=== PATIENT | female | born 1975 | race Caucasian/White ===

== ENCOUNTER 2020-11-16 05:55 | Inpatient (IN) | payer MEDICARE, MEDICAID ==
[~2020-11-16] VITALS: Ht 175.3 cm; Wt 99.3 kg
[2020-11-16] MEDS ORDERED: PROMETHAZINE HCL 25 MG TABLET PO PRN (09:00)
[2020-11-16] MEDS ORDERED: LOPERAMIDE HCL 2 MG CAPSULE PO PRN (09:00)
[2020-11-16] MEDS ORDERED: TUBERCULIN, PURIFIED PROTEIN DERIVATIVE 5 TU/0.1 ML SYRINGE ID ONE (09:00)
[2020-11-16] MEDS ORDERED: GuaiFENesin/D-METHORPHAN [SUGAR-FREE] 200-20MG/10 ML SYRUP UDCUP PO PRN (09:00)
[2020-11-16] MEDS ORDERED: HydrOXYzine PAMOATE 50 MG CAPSULE PO PRN (09:00)
[2020-11-16] MEDS ORDERED: ACETAMINOPHEN 325 MG TABLET PO PRN (09:00)
[2020-11-16] MEDS ORDERED: MAG HYDROX/AL HYDROX/SIMETH ES 30 ML SUSPENSION UDCUP PO PRN (09:00)
[2020-11-16] MEDS: FLUoxetine HCL 20 MG CAPSULE PO SCH (13:20)
[2020-11-16] MEDS: FOLIC ACID 1 MG TABLET PO SCH (13:27)
[2020-11-16] MEDS: MULTIVITAMINS WITH MINERALS, THERAPEUTIC TABLET PO SCH (13:27)
[2020-11-16] MEDS: OMEGA-3/DHA/EPA/FISH OIL 1,000 MG CAPSULE PO SCH (13:28)
[2020-11-16] MEDS: THIAMINE 100 MG TABLET PO SCH ×2 (13:28→16:49)
[2020-11-16] MEDS: NALTREXONE HCL 50 MG TABLET PO SCH (13:28)
[2020-11-16] MEDS: LORazepam 2 MG TABLET PO PRN (13:28)
[2020-11-16] MEDS: OLANZapine 5 MG RAPDIS TABLET PO PRN (13:29)
[2020-11-16] MEDS: NICOTINE 21 MG/24 HOUR PATCH TD SCH (13:30)
[2020-11-16 16:19] VITALS: BP 100/62
[2020-11-16] MEDS: MELATONIN 5 MG TABLET PO SCH (20:12)
[2020-11-16] MEDS: OLANZapine 5 MG RAPDIS TABLET PO SCH (20:13)
[2020-11-17 00:24] VITALS: BP 119/62
[2020-11-17] MEDS: ACETAMINOPHEN 325 MG TABLET PO PRN ×2 (07:07→14:46)
[2020-11-17 07:36] LABS: BASOPHILS % (AUTO) 0.7 % (0.0-2.0); EOSINOPHILS % (AUTO) 11.8 % (1.0-6.0); HEMATOCRIT 35.5 % (36-46); HEMOGLOBIN 11.5 g/dL (12.0-16.0); LYMPHOCYTES # (AUTO) 1.8 K/uL (1.0-4.8); LYMPHOCYTES % (AUTO) 28.7 % (22.0-44.0); MEAN CORPUSCULAR HEMOGLOBIN 29.8 pg (26.0-34.0); MEAN CORPUSCULAR HGB CONC 32.4 G/dL (31.0-37.0); MEAN CORPUSCULAR VOLUME 92 fL (80-100); MONOCYTES # (AUTO) 0.3 K/uL (0.1-1.0); MONOCYTES % (AUTO) 5.4 % (2.0-9.0); NEUTROPHILS # (AUTO) 3.3 K/uL (1.8-7.7); NEUTROPHILS % (AUTO) 53.4 % (40.0-70.0); PLATELET COUNT (AUTO) 260 K/uL (150-450); RED BLOOD CELL COUNT(AUTO) 3.86 MIL/uL (4.00-5.20); RED CELL DISTRIBUTION WIDTH 13.6 % (11.5-14.5)
[2020-11-17 08:06] VITALS: BP 139/80
[2020-11-17] MEDS: NICOTINE 21 MG/24 HOUR PATCH TD SCH (08:07)
[2020-11-17] MEDS: OMEGA-3/DHA/EPA/FISH OIL 1,000 MG CAPSULE PO SCH (08:07)
[2020-11-17] MEDS: FOLIC ACID 1 MG TABLET PO SCH (08:07)
[2020-11-17] MEDS: THIAMINE 100 MG TABLET PO SCH ×2 (08:07→17:17)
[2020-11-17] MEDS: NALTREXONE HCL 50 MG TABLET PO SCH (08:07)
[2020-11-17] MEDS: MULTIVITAMINS WITH MINERALS, THERAPEUTIC TABLET PO SCH (08:07)
[2020-11-17] MEDS: FLUoxetine HCL 20 MG CAPSULE PO SCH ×3 (08:07→09:00)
[2020-11-17 08:10] LABS: HEMOGLOBIN A1C 5.6 % (3.8-5.6)
[2020-11-17 08:13] LABS: ALANINE AMINOTRANSFERASE 26 U/L (12-78); ALKALINE PHOSPHATASE 65 U/L (46-116); ANION GAP 7 mmol/L (8-16); ASPARTATE AMINOTRANSFERASE 16 U/L (15-37); BILIRUBIN,TOTAL 0.1 mg/dL (0.1-1.0); CALCIUM, TOTAL 8.9 mg/dL (8.8-10.5); CARBON DIOXIDE 28 mmol/L (22-29); CHLORIDE 109 mmol/L (98-107); CHOL/HDL RATIO 5.8 (3.9-5.7); CHOLESTEROL 202 mg/dL (131-200); CREATININE 0.57 mg/dL (0.60-1.30); FREE T4 (FREE THYROXINE) 0.94 ng/dL (0.76-1.46); GLOMERULAR FILTR. RATE CALC > 60 mL/min (>60); GLUCOSE,RANDOM 81 mg/dL (70-110); HCG,QUANTITATIVE 1 mIU/mL (0-6); HDL CHOLESTEROL 35 mg/dL (40-60); LDL CHOL (CALC.) 122 mg/dL (0-130); POTASSIUM 3.9 mmol/L (3.5-5.1); SODIUM SERUM 144 mmol/L (136-145); TOTAL PROTEIN, SERUM 6.5 g/dL (6.4-8.2); TRIGLYCERIDES 225 mg/dL (15-150); UREA NITROGEN, BLOOD 11 mg/dL (7-18)
[2020-11-17] MEDS: ATORVASTATIN CALCIUM 10 MG TABLET PO SCH (09:21)
[2020-11-17] MEDS: IBUPROFEN 600 MG TABLET PO PRN (09:43)
[2020-11-17] MEDS: LORazepam 2 MG TABLET PO PRN (12:05)
[2020-11-17 16:17] VITALS: BP 121/72
[2020-11-17] MEDS: OLANZapine 5 MG RAPDIS TABLET PO SCH (20:49)
[2020-11-17] MEDS: MELATONIN 5 MG TABLET PO SCH (20:49)
[2020-11-18 00:15] VITALS: BP 130/85
[2020-11-18 08:10] VITALS: BP 140/90
[2020-11-18] MEDS: NICOTINE 21 MG/24 HOUR PATCH TD SCH (08:15)
[2020-11-18] MEDS: THIAMINE 100 MG TABLET PO SCH ×2 (08:15→16:18)
[2020-11-18] MEDS: FOLIC ACID 1 MG TABLET PO SCH (08:15)
[2020-11-18] MEDS: MULTIVITAMINS WITH MINERALS, THERAPEUTIC TABLET PO SCH (08:15)
[2020-11-18] MEDS: OMEGA-3/DHA/EPA/FISH OIL 1,000 MG CAPSULE PO SCH (08:15)
[2020-11-18] MEDS: ATORVASTATIN CALCIUM 10 MG TABLET PO SCH (08:15)
[2020-11-18] MEDS: NALTREXONE HCL 50 MG TABLET PO SCH (08:15)
[2020-11-18] MEDS: FLUoxetine HCL 20 MG CAPSULE PO SCH (08:24)
[2020-11-18] MEDS: IBUPROFEN 600 MG TABLET PO PRN (08:28)
[2020-11-18] MEDS: LORazepam 2 MG TABLET PO PRN (08:39)
[2020-11-18 16:14] VITALS: BP 125/90
[2020-11-18] MEDS: MELATONIN 5 MG TABLET PO SCH (20:34)
[2020-11-18] MEDS: OLANZapine 10 MG RAPDIS TABLET PO SCH (20:34)
[2020-11-19 00:26] VITALS: BP 130/71
[2020-11-19] MEDS: IBUPROFEN 600 MG TABLET PO PRN (01:52)
[2020-11-19] MEDS: LORazepam 2 MG TABLET PO PRN ×2 (01:52→09:53)
[2020-11-19 08:10] VITALS: BP 118/71
[2020-11-19] MEDS: FOLIC ACID 1 MG TABLET PO SCH (08:26)
[2020-11-19] MEDS: BuPROPion HCL XL 150 MG ER TABLET PO SCH (08:26)
[2020-11-19] MEDS: MULTIVITAMINS WITH MINERALS, THERAPEUTIC TABLET PO SCH (08:26)
[2020-11-19] MEDS: THIAMINE 100 MG TABLET PO SCH ×2 (08:26→16:28)
[2020-11-19] MEDS: OMEGA-3/DHA/EPA/FISH OIL 1,000 MG CAPSULE PO SCH (08:26)
[2020-11-19] MEDS: ATORVASTATIN CALCIUM 10 MG TABLET PO SCH (08:27)
[2020-11-19] MEDS: NALTREXONE HCL 50 MG TABLET PO SCH (08:27)
[2020-11-19] MEDS: NICOTINE 21 MG/24 HOUR PATCH TD SCH (08:36)
[2020-11-19] MEDS: ACETAMINOPHEN 325 MG TABLET PO PRN (10:32)
[2020-11-19] MEDS: OLANZapine 5 MG RAPDIS TABLET PO PRN (11:10)
[2020-11-19 16:05] VITALS: BP 128/79
[2020-11-19] MEDS: MELATONIN 5 MG TABLET PO SCH (20:45)
[2020-11-19] MEDS: OLANZapine 10 MG RAPDIS TABLET PO SCH (20:45)
[2020-11-20] MEDS: IBUPROFEN 600 MG TABLET PO PRN ×2 (01:00→20:15)
[2020-11-20 01:01] VITALS: BP 125/79
[2020-11-20 08:09] VITALS: BP 105/74
[2020-11-20] MEDS: FOLIC ACID 1 MG TABLET PO SCH (08:21)
[2020-11-20] MEDS: OMEGA-3/DHA/EPA/FISH OIL 1,000 MG CAPSULE PO SCH (08:21)
[2020-11-20] MEDS: NALTREXONE HCL 50 MG TABLET PO SCH (08:22)
[2020-11-20] MEDS: MULTIVITAMINS WITH MINERALS, THERAPEUTIC TABLET PO SCH (08:22)
[2020-11-20] MEDS: BuPROPion HCL XL 150 MG ER TABLET PO SCH (08:22)
[2020-11-20] MEDS: NICOTINE 21 MG/24 HOUR PATCH TD SCH (08:22)
[2020-11-20] MEDS: ATORVASTATIN CALCIUM 10 MG TABLET PO SCH (08:22)
[2020-11-20] MEDS: THIAMINE 100 MG TABLET PO SCH ×2 (08:22→16:35)
[2020-11-20] MEDS: LORazepam 2 MG TABLET PO PRN ×2 (11:14→16:35)
[2020-11-20 16:09] VITALS: BP 110/73
[2020-11-20 20:15] VITALS: BP 116/68
[2020-11-20] MEDS: OLANZapine 10 MG RAPDIS TABLET PO SCH (20:28)
[2020-11-20] MEDS: MELATONIN 5 MG TABLET PO SCH (20:29)
[2020-11-21 00:42] VITALS: BP 117/83
[2020-11-21 02:09] VITALS: BP 119/72
[2020-11-21] MEDS: LORazepam 2 MG TABLET PO PRN ×3 (02:12→16:38)
[2020-11-21] MEDS: ACETAMINOPHEN 325 MG TABLET PO PRN (02:12)
[2020-11-21 07:12] LABS: COVID AG,FIA SOURCE NASOPHARYNGEAL
[2020-11-21 07:24] LABS: APPEARANCE,URINE CLEAR (CLEAR); BILIRUBIN,URINE NEGATIVE (NEGATIVE); GLUCOSE, URINE (UA) NEGATIVE (NEGATIVE); KETONES,URINE NEGATIVE (NEGATIVE); LEUKOCYTE ESTERASE ,URINE NEGATIVE (NEGATIVE); NITRATE,URINE NEGATIVE (NEGATIVE); OCCULT BLOOD,URINE NEGATIVE (NEGATIVE); PH,URINE 7.5 (5.0-8.0); PROTEIN,URINE NEGATIVE (NEGATIVE); UROBILINOGEN,URINE 0.2 mg/dL (<=1.0)
[2020-11-21 07:26] LABS: AMPHET/METH SCREEN,URINE NEGATIVE (NEGATIVE); BARBITURATE SCREEN, URINE NEGATIVE (NEGATIVE); BENZODIAZEPINES SCREEN,URINE NEGATIVE (NEGATIVE); CANNABINOID SCREEN,URINE NEGATIVE (NEGATIVE); COCAINE SCREEN,URINE NEGATIVE (NEGATIVE); METHADONE SCREEN, URINE NEGATIVE (NEGATIVE); OPIATE SCREEN,URINE NEGATIVE (NEGATIVE)
[2020-11-21 07:28] LABS: PHENCYCLIDINE SCREEN,URINE NEGATIVE (NEGATIVE)
[2020-11-21] MEDS: THIAMINE 100 MG TABLET PO SCH ×2 (08:23→16:28)
[2020-11-21] MEDS: ATORVASTATIN CALCIUM 10 MG TABLET PO SCH (08:23)
[2020-11-21] MEDS: MULTIVITAMINS WITH MINERALS, THERAPEUTIC TABLET PO SCH (08:23)
[2020-11-21] MEDS: OMEGA-3/DHA/EPA/FISH OIL 1,000 MG CAPSULE PO SCH (08:23)
[2020-11-21] MEDS: NALTREXONE HCL 50 MG TABLET PO SCH (08:23)
[2020-11-21] MEDS: BuPROPion HCL XL 150 MG ER TABLET PO SCH (08:23)
[2020-11-21] MEDS: FOLIC ACID 1 MG TABLET PO SCH (08:23)
[2020-11-21] MEDS: NICOTINE 21 MG/24 HOUR PATCH TD SCH (08:24)
[2020-11-21 09:58] VITALS: BP 136/91
[2020-11-21] MEDS: IBUPROFEN 600 MG TABLET PO PRN (13:40)
[2020-11-21 16:10] VITALS: BP 120/87
[2020-11-21] MEDS ORDERED: HALOPERIDOL LACTATE 5 MG/ML VIAL ONE (18:00)
[2020-11-21] MEDS ORDERED: DiphenhydrAMINE HCL 50 MG/ML VIAL ONE (18:00)
[2020-11-21] MEDS ORDERED: LORazepam 2 MG/ML VIAL ONE (18:00)
[2020-11-21] MEDS ORDERED: LORazepam 2 MG/ML VIAL IM ONE (18:15)
[2020-11-21] MEDS ORDERED: HALOPERIDOL LACTATE 5 MG/ML VIAL IM ONE (18:15)
[2020-11-21] MEDS ORDERED: DiphenhydrAMINE HCL 50 MG/ML VIAL IM ONE (18:15)
[2020-11-21] MEDS: OLANZapine 10 MG RAPDIS TABLET PO SCH (20:20)
[2020-11-21] MEDS: MELATONIN 5 MG TABLET PO SCH (20:23)
[2020-11-22 00:36] VITALS: BP 129/84
[2020-11-22] MEDS: ZOLPIDEM TARTRATE 10 MG TABLET PO PRN (01:02)
[2020-11-22] MEDS: LORazepam 2 MG TABLET PO PRN ×2 (01:03→20:28)
[2020-11-22 02:52] VITALS: BP 132/72
[2020-11-22] MEDS: IBUPROFEN 600 MG TABLET PO PRN ×2 (02:55→10:18)
[2020-11-22 08:21] VITALS: BP 115/82
[2020-11-22] MEDS: OMEGA-3/DHA/EPA/FISH OIL 1,000 MG CAPSULE PO SCH (09:22)
[2020-11-22] MEDS: FOLIC ACID 1 MG TABLET PO SCH (09:22)
[2020-11-22] MEDS: NALTREXONE HCL 50 MG TABLET PO SCH (09:23)
[2020-11-22] MEDS: MULTIVITAMINS WITH MINERALS, THERAPEUTIC TABLET PO SCH (09:23)
[2020-11-22] MEDS: BuPROPion HCL XL 150 MG ER TABLET PO SCH (09:24)
[2020-11-22] MEDS: NICOTINE 21 MG/24 HOUR PATCH TD SCH (09:26)
[2020-11-22] MEDS: ATORVASTATIN CALCIUM 10 MG TABLET PO SCH (09:31)
[2020-11-22] MEDS: THIAMINE 100 MG TABLET PO SCH ×2 (09:40→16:20)
[2020-11-22 16:18] VITALS: BP 107/66
[2020-11-22] MEDS: BusPIRone HCL 10 MG TABLET PO SCH (16:20)
[2020-11-22] MEDS: GABAPENTIN 300 MG CAPSULE PO SCH (16:20)
[2020-11-22] MEDS ORDERED: LORazepam 2 MG/ML VIAL ONE (16:29)
[2020-11-22] MEDS ORDERED: HALOPERIDOL LACTATE 5 MG/ML VIAL ONE (16:29)
[2020-11-22] MEDS ORDERED: DiphenhydrAMINE HCL 50 MG/ML VIAL ONE (16:29)
[2020-11-22] MEDS ORDERED: HALOPERIDOL LACTATE 5 MG/ML VIAL IM ONE (16:30)
[2020-11-22] MEDS ORDERED: LORazepam 2 MG/ML VIAL IM ONE (16:30)
[2020-11-22] MEDS ORDERED: DiphenhydrAMINE HCL 50 MG/ML VIAL IM ONE (16:30)
[2020-11-22] MEDS: TraZODone HCL 100 MG TABLET PO SCH (20:28)
[2020-11-22] MEDS: OLANZapine 10 MG RAPDIS TABLET PO SCH (20:28)
[2020-11-22] MEDS: MELATONIN 5 MG TABLET PO SCH (21:33)
[2020-11-23 04:10] VITALS: BP 118/79
[2020-11-23] MEDS: IBUPROFEN 600 MG TABLET PO PRN ×2 (06:07→14:05)
[2020-11-23 08:17] VITALS: BP 128/78
[2020-11-23] MEDS: ACETAMINOPHEN 325 MG TABLET PO PRN ×2 (08:49→23:06)
[2020-11-23] MEDS: LORazepam 2 MG TABLET PO PRN ×2 (08:49→16:02)
[2020-11-23] MEDS: OMEGA-3/DHA/EPA/FISH OIL 1,000 MG CAPSULE PO SCH (08:49)
[2020-11-23] MEDS: NICOTINE 21 MG/24 HOUR PATCH TD SCH (08:50)
[2020-11-23] MEDS: ATORVASTATIN CALCIUM 10 MG TABLET PO SCH (08:50)
[2020-11-23] MEDS: FOLIC ACID 1 MG TABLET PO SCH (08:50)
[2020-11-23] MEDS: BuPROPion HCL XL 150 MG ER TABLET PO SCH (08:50)
[2020-11-23] MEDS: THIAMINE 100 MG TABLET PO SCH ×2 (08:50→16:02)
[2020-11-23] MEDS: GABAPENTIN 300 MG CAPSULE PO SCH ×3 (08:50→16:02)
[2020-11-23] MEDS: NALTREXONE HCL 50 MG TABLET PO SCH (08:50)
[2020-11-23] MEDS: MULTIVITAMINS WITH MINERALS, THERAPEUTIC TABLET PO SCH (08:50)
[2020-11-23] MEDS ORDERED: ATOMOXETINE HCL 10 MG CAPSULE PO SCH (09:00)
[2020-11-23] MEDS: BusPIRone HCL 10 MG TABLET PO SCH (09:17)
[2020-11-23 11:44] LABS: GLUCOMETER DEV NAME(LOC) BV3S.; GLUCOSE,POINT OF CARE 92 MG/DL (70-110)
[2020-11-23] MEDS: MAGNESIUM HYDROXIDE SUSPENSION 30 ML UDCUP PO PRN (14:40)
[2020-11-23 16:11] VITALS: BP 106/66
[2020-11-23] MEDS: DIVALPROEX SODIUM 500 MG ER TABLET PO SCH (20:02)
[2020-11-23] MEDS: MELATONIN 5 MG TABLET PO SCH (20:05)
[2020-11-23] MEDS: OLANZapine 10 MG RAPDIS TABLET PO SCH (20:05)
[2020-11-23] MEDS: TraZODone HCL 100 MG TABLET PO SCH (20:05)
[2020-11-24 05:43] VITALS: BP 114/68
[2020-11-24 08:18] VITALS: BP 118/74
[2020-11-24] MEDS: GABAPENTIN 300 MG CAPSULE PO SCH ×2 (08:45→13:00)
[2020-11-24] MEDS: LORazepam 2 MG TABLET PO PRN ×2 (08:46→16:15)
[2020-11-24] MEDS: THIAMINE 100 MG TABLET PO SCH ×2 (08:46→16:15)
[2020-11-24] MEDS: FOLIC ACID 1 MG TABLET PO SCH (08:46)
[2020-11-24] MEDS: NALTREXONE HCL 50 MG TABLET PO SCH (08:46)
[2020-11-24] MEDS: MULTIVITAMINS WITH MINERALS, THERAPEUTIC TABLET PO SCH (08:46)
[2020-11-24] MEDS: ATORVASTATIN CALCIUM 10 MG TABLET PO SCH (08:46)
[2020-11-24] MEDS: NICOTINE 21 MG/24 HOUR PATCH TD SCH (08:46)
[2020-11-24] MEDS: OMEGA-3/DHA/EPA/FISH OIL 1,000 MG CAPSULE PO SCH (08:46)
[2020-11-24] MEDS: IBUPROFEN 600 MG TABLET PO PRN (08:48)
[2020-11-24] MEDS: MAGNESIUM HYDROXIDE SUSPENSION 30 ML UDCUP PO PRN (11:39)
[2020-11-24] MEDS: GABAPENTIN 400 MG CAPSULE PO SCH (16:16)
[2020-11-24 16:29] VITALS: BP 124/62
[2020-11-24] MEDS: MELATONIN 5 MG TABLET PO SCH (20:32)
[2020-11-24] MEDS: OLANZapine 10 MG RAPDIS TABLET PO SCH (20:33)
[2020-11-24] MEDS: DIVALPROEX SODIUM 500 MG ER TABLET PO SCH (20:33)
[2020-11-24] MEDS: TraZODone HCL 100 MG TABLET PO SCH (20:33)
[2020-11-25 05:37] VITALS: BP 112/62
[2020-11-25 08:27] VITALS: BP 118/82
[2020-11-25] MEDS: THIAMINE 100 MG TABLET PO SCH ×2 (09:27→16:29)
[2020-11-25] MEDS: FOLIC ACID 1 MG TABLET PO SCH (09:27)
[2020-11-25] MEDS: NALTREXONE HCL 50 MG TABLET PO SCH (09:27)
[2020-11-25] MEDS: MULTIVITAMINS WITH MINERALS, THERAPEUTIC TABLET PO SCH (09:27)
[2020-11-25] MEDS: ATORVASTATIN CALCIUM 10 MG TABLET PO SCH (09:27)
[2020-11-25] MEDS: OMEGA-3/DHA/EPA/FISH OIL 1,000 MG CAPSULE PO SCH (09:27)
[2020-11-25] MEDS: NICOTINE 21 MG/24 HOUR PATCH TD SCH (09:28)
[2020-11-25] MEDS: GABAPENTIN 400 MG CAPSULE PO SCH ×3 (09:30→16:29)
[2020-11-25] MEDS: IBUPROFEN 600 MG TABLET PO PRN (09:30)
[2020-11-25] MEDS: HALOPERIDOL 5 MG TABLET PO PRN (09:37)
[2020-11-25] MEDS: LORazepam 2 MG TABLET PO PRN ×2 (09:37→16:29)
[2020-11-25 16:19] VITALS: BP 101/60
[2020-11-25] MEDS: OLANZapine 10 MG RAPDIS TABLET PO SCH (20:06)
[2020-11-25] MEDS: DIVALPROEX SODIUM 500 MG ER TABLET PO SCH (20:06)
[2020-11-25] MEDS: MELATONIN 5 MG TABLET PO SCH (20:06)
[2020-11-25] MEDS: TraZODone HCL 100 MG TABLET PO SCH (20:06)
[2020-11-26] MEDS: IBUPROFEN 600 MG TABLET PO PRN ×3 (00:57→16:17)
[2020-11-26] MEDS: LORazepam 2 MG TABLET PO PRN ×3 (00:57→16:17)
[2020-11-26 01:00] VITALS: BP 114/76
[2020-11-26 08:18] VITALS: BP 118/72
[2020-11-26] MEDS: OMEGA-3/DHA/EPA/FISH OIL 1,000 MG CAPSULE PO SCH (08:48)
[2020-11-26] MEDS: NICOTINE 21 MG/24 HOUR PATCH TD SCH (08:48)
[2020-11-26] MEDS: GABAPENTIN 400 MG CAPSULE PO SCH ×3 (08:49→16:55)
[2020-11-26] MEDS: ATORVASTATIN CALCIUM 10 MG TABLET PO SCH (08:49)
[2020-11-26] MEDS: MULTIVITAMINS WITH MINERALS, THERAPEUTIC TABLET PO SCH (08:49)
[2020-11-26] MEDS: NALTREXONE HCL 50 MG TABLET PO SCH (08:49)
[2020-11-26] MEDS ORDERED: ATOMOXETINE HCL 10 MG CAPSULE PO SCH (09:00)
[2020-11-26] MEDS: MAGNESIUM HYDROXIDE SUSPENSION 30 ML UDCUP PO PRN (12:33)
[2020-11-26 16:15] VITALS: BP 152/107
[2020-11-26] MEDS: HALOPERIDOL 5 MG TABLET PO PRN (16:17)
[2020-11-26 17:17] VITALS: BP 137/90
[2020-11-26] MEDS: TraZODone HCL 100 MG TABLET PO SCH (20:05)
[2020-11-26] MEDS: MELATONIN 5 MG TABLET PO SCH (20:05)
[2020-11-26] MEDS: OLANZapine 10 MG RAPDIS TABLET PO SCH (20:05)
[2020-11-26] MEDS: DIVALPROEX SODIUM 500 MG ER TABLET PO SCH (20:05)
[2020-11-27 02:05] VITALS: BP 106/71
[2020-11-27] MEDS: IBUPROFEN 600 MG TABLET PO PRN ×2 (02:06→18:00)
[2020-11-27] MEDS: LORazepam 2 MG TABLET PO PRN ×3 (02:06→18:00)
[2020-11-27] MEDS: ZOLPIDEM TARTRATE 10 MG TABLET PO PRN (03:01)
[2020-11-27] MEDS: ACETAMINOPHEN 325 MG TABLET PO PRN (03:03)
[2020-11-27 08:15] VITALS: BP 114/67
[2020-11-27] MEDS: ATOMOXETINE HCL 18 MG CAPSULE PO SCH (08:22)
[2020-11-27] MEDS: NALTREXONE HCL 50 MG TABLET PO SCH (08:23)
[2020-11-27] MEDS: ATORVASTATIN CALCIUM 10 MG TABLET PO SCH (08:23)
[2020-11-27] MEDS: MULTIVITAMINS WITH MINERALS, THERAPEUTIC TABLET PO SCH (08:23)
[2020-11-27] MEDS: GABAPENTIN 400 MG CAPSULE PO SCH ×3 (08:24→16:05)
[2020-11-27] MEDS: OMEGA-3/DHA/EPA/FISH OIL 1,000 MG CAPSULE PO SCH (08:24)
[2020-11-27] MEDS: NICOTINE 21 MG/24 HOUR PATCH TD SCH (08:25)
[2020-11-27] MEDS: OLANZapine 5 MG RAPDIS TABLET PO PRN (09:05)
[2020-11-27] MEDS: MAGNESIUM HYDROXIDE SUSPENSION 30 ML UDCUP PO PRN (13:32)
[2020-11-27 16:09] VITALS: BP 137/86
[2020-11-27 18:00] VITALS: BP 137/86
[2020-11-27] MEDS: HALOPERIDOL 5 MG TABLET PO PRN (18:47)
[2020-11-27] MEDS: TraZODone HCL 100 MG TABLET PO SCH (20:03)
[2020-11-27] MEDS: MELATONIN 5 MG TABLET PO SCH (20:03)
[2020-11-27] MEDS: OLANZapine 10 MG RAPDIS TABLET PO SCH (20:03)
[2020-11-27] MEDS: DIVALPROEX SODIUM 500 MG ER TABLET PO SCH (20:03)
[2020-11-28 04:59] VITALS: BP 121/78
[2020-11-28 06:00] VITALS: BP 124/68
[2020-11-28] MEDS: IBUPROFEN 600 MG TABLET PO PRN ×2 (06:11→15:22)
[2020-11-28] MEDS: LORazepam 2 MG TABLET PO PRN ×2 (06:12→15:21)
[2020-11-28] MEDS: ATOMOXETINE HCL 18 MG CAPSULE PO SCH (08:40)
[2020-11-28] MEDS: MULTIVITAMINS WITH MINERALS, THERAPEUTIC TABLET PO SCH (08:41)
[2020-11-28] MEDS: OMEGA-3/DHA/EPA/FISH OIL 1,000 MG CAPSULE PO SCH (08:41)
[2020-11-28] MEDS: NICOTINE 21 MG/24 HOUR PATCH TD SCH (08:41)
[2020-11-28] MEDS: NALTREXONE HCL 50 MG TABLET PO SCH (08:41)
[2020-11-28] MEDS: GABAPENTIN 400 MG CAPSULE PO SCH ×3 (08:41→16:10)
[2020-11-28] MEDS: ATORVASTATIN CALCIUM 10 MG TABLET PO SCH (08:41)
[2020-11-28 08:53] VITALS: BP 111/71
[2020-11-28] MEDS: HALOPERIDOL 5 MG TABLET PO PRN (15:21)
[2020-11-28 16:11] VITALS: BP 105/71
[2020-11-28] MEDS: TraZODone HCL 100 MG TABLET PO SCH (20:10)
[2020-11-28] MEDS: DIVALPROEX SODIUM 500 MG ER TABLET PO SCH (20:10)
[2020-11-28] MEDS: MELATONIN 5 MG TABLET PO SCH (20:10)
[2020-11-28] MEDS: OLANZapine 10 MG RAPDIS TABLET PO SCH (20:11)
[2020-11-29 00:48] VITALS: BP 119/82
[2020-11-29] MEDS: ACETAMINOPHEN 325 MG TABLET PO PRN (00:52)
[2020-11-29] MEDS: LORazepam 2 MG TABLET PO PRN ×2 (00:57→15:56)
[2020-11-29] MEDS: ZOLPIDEM TARTRATE 10 MG TABLET PO PRN ×2 (00:57→21:36)
[2020-11-29 08:17] VITALS: BP 126/81
[2020-11-29] MEDS: MULTIVITAMINS WITH MINERALS, THERAPEUTIC TABLET PO SCH (08:59)
[2020-11-29] MEDS: NALTREXONE HCL 50 MG TABLET PO SCH (08:59)
[2020-11-29] MEDS: OMEGA-3/DHA/EPA/FISH OIL 1,000 MG CAPSULE PO SCH (08:59)
[2020-11-29] MEDS: NICOTINE 21 MG/24 HOUR PATCH TD SCH (08:59)
[2020-11-29] MEDS: ATORVASTATIN CALCIUM 10 MG TABLET PO SCH (08:59)
[2020-11-29] MEDS: GABAPENTIN 400 MG CAPSULE PO SCH ×3 (08:59→17:01)
[2020-11-29] MEDS: ATOMOXETINE HCL 18 MG CAPSULE PO SCH (09:00)
[2020-11-29] MEDS: IBUPROFEN 600 MG TABLET PO PRN ×2 (15:56→21:36)
[2020-11-29] MEDS: HALOPERIDOL 5 MG TABLET PO PRN (15:56)
[2020-11-29 16:32] VITALS: BP 115/82
[2020-11-29] MEDS: DIVALPROEX SODIUM 500 MG ER TABLET PO SCH (20:01)
[2020-11-29] MEDS: TraZODone HCL 100 MG TABLET PO SCH (20:01)
[2020-11-29] MEDS: MELATONIN 5 MG TABLET PO SCH (20:01)
[2020-11-29] MEDS: OLANZapine 10 MG RAPDIS TABLET PO SCH (20:01)
[2020-11-30] MEDS: LORazepam 2 MG TABLET PO PRN ×3 (02:49→16:29)
[2020-11-30] MEDS: ACETAMINOPHEN 325 MG TABLET PO PRN ×2 (02:49→22:22)
[2020-11-30 02:54] VITALS: BP 140/102
[2020-11-30 08:32] VITALS: BP 130/89
[2020-11-30] MEDS: NALTREXONE HCL 50 MG TABLET PO SCH (08:48)
[2020-11-30] MEDS: MULTIVITAMINS WITH MINERALS, THERAPEUTIC TABLET PO SCH (08:48)
[2020-11-30] MEDS: GABAPENTIN 400 MG CAPSULE PO SCH ×3 (08:48→16:28)
[2020-11-30] MEDS: ATOMOXETINE HCL 25 MG CAPSULE PO SCH (08:48)
[2020-11-30] MEDS: ATORVASTATIN CALCIUM 10 MG TABLET PO SCH (08:48)
[2020-11-30] MEDS: OMEGA-3/DHA/EPA/FISH OIL 1,000 MG CAPSULE PO SCH (08:48)
[2020-11-30] MEDS: NICOTINE 21 MG/24 HOUR PATCH TD SCH (08:49)
[2020-11-30] MEDS: IBUPROFEN 600 MG TABLET PO PRN (14:58)
[2020-11-30 15:12] LABS: GLUCOMETER DEV NAME(LOC) POC.BV
[2020-11-30 16:12] VITALS: BP 128/71
[2020-11-30] MEDS: MAGNESIUM HYDROXIDE SUSPENSION 30 ML UDCUP PO PRN (16:29)
[2020-11-30] MEDS: MELATONIN 5 MG TABLET PO SCH (20:04)
[2020-11-30] MEDS: DIVALPROEX SODIUM 500 MG ER TABLET PO SCH (20:04)
[2020-11-30] MEDS: TraZODone HCL 100 MG TABLET PO SCH (20:04)
[2020-11-30] MEDS: OLANZapine 10 MG RAPDIS TABLET PO SCH (20:04)
[2020-11-30] MEDS: ZOLPIDEM TARTRATE 10 MG TABLET PO PRN (20:41)
[2020-12-01 04:28] VITALS: BP 114/64
[2020-12-01] MEDS: NICOTINE 21 MG/24 HOUR PATCH TD SCH (08:01)
[2020-12-01] MEDS: MULTIVITAMINS WITH MINERALS, THERAPEUTIC TABLET PO SCH (08:01)
[2020-12-01] MEDS: ATORVASTATIN CALCIUM 10 MG TABLET PO SCH (08:01)
[2020-12-01] MEDS: GABAPENTIN 400 MG CAPSULE PO SCH ×3 (08:01→16:44)
[2020-12-01] MEDS: ATOMOXETINE HCL 25 MG CAPSULE PO SCH (08:02)
[2020-12-01] MEDS: NALTREXONE HCL 50 MG TABLET PO SCH (08:02)
[2020-12-01 08:06] VITALS: BP 121/63
[2020-12-01] MEDS: OMEGA-3/DHA/EPA/FISH OIL 1,000 MG CAPSULE PO SCH (08:13)
[2020-12-01] MEDS: LORazepam 2 MG TABLET PO PRN ×2 (09:30→16:45)
[2020-12-01] MEDS: IBUPROFEN 600 MG TABLET PO PRN (12:54)
[2020-12-01 16:15] VITALS: BP 103/67
[2020-12-01] MEDS: MELATONIN 5 MG TABLET PO SCH (21:10)
[2020-12-01] MEDS: TraZODone HCL 100 MG TABLET PO SCH (21:10)
[2020-12-01] MEDS: DIVALPROEX SODIUM 500 MG ER TABLET PO SCH (21:10)
[2020-12-01] MEDS: OLANZapine 10 MG RAPDIS TABLET PO SCH (21:12)
[2020-12-01] MEDS: ZOLPIDEM TARTRATE 10 MG TABLET PO PRN (21:14)
[2020-12-02 00:06] VITALS: BP 101/72
[2020-12-02 02:50] VITALS: BP 106/68
[2020-12-02] MEDS: IBUPROFEN 600 MG TABLET PO PRN ×2 (02:55→10:15)
[2020-12-02] MEDS: ATORVASTATIN CALCIUM 10 MG TABLET PO SCH (08:07)
[2020-12-02] MEDS: OMEGA-3/DHA/EPA/FISH OIL 1,000 MG CAPSULE PO SCH (08:07)
[2020-12-02] MEDS: NALTREXONE HCL 50 MG TABLET PO SCH (08:07)
[2020-12-02] MEDS: LORazepam 2 MG TABLET PO PRN ×2 (08:07→12:17)
[2020-12-02] MEDS: ATOMOXETINE HCL 25 MG CAPSULE PO SCH (08:07)
[2020-12-02] MEDS: GABAPENTIN 400 MG CAPSULE PO SCH ×2 (08:07→12:17)
[2020-12-02] MEDS: MULTIVITAMINS WITH MINERALS, THERAPEUTIC TABLET PO SCH (08:07)
[2020-12-02] MEDS: NICOTINE 21 MG/24 HOUR PATCH TD SCH (08:07)
[2020-12-02] MEDS ORDERED: ALBUTEROL SULFATE HFA 90 MCG/PUFF 8 GM INHALER IH PRN (08:30)
[2020-12-02 08:46] VITALS: BP 112/72
[2020-12-02] MEDS: FLUTICASONE/SALMETEROL 250-50 MCG/INH INHALER [60] IH SCH ×2 (09:00→20:36)
[2020-12-02] MEDS: HALOPERIDOL 5 MG TABLET PO PRN (10:00)
[2020-12-02] MEDS ORDERED: GABAPENTIN 300 MG CAPSULE PO PRN (13:30)
[2020-12-02] MEDS: GABAPENTIN 300 MG CAPSULE PO SCH ×2 (16:03→20:39)
[2020-12-02 16:08] VITALS: BP 118/77
[2020-12-02] MEDS: DIVALPROEX SODIUM 500 MG ER TABLET PO SCH (20:37)
[2020-12-02] MEDS: MELATONIN 5 MG TABLET PO SCH (20:37)
[2020-12-02] MEDS: OLANZapine 10 MG RAPDIS TABLET PO SCH (20:37)
[2020-12-02] MEDS: TraZODone HCL 100 MG TABLET PO SCH (20:37)
[2020-12-03] MEDS: IBUPROFEN 600 MG TABLET PO PRN ×2 (00:24→22:00)
[2020-12-03 04:09] VITALS: BP 112/71
[2020-12-03] MEDS: HALOPERIDOL 5 MG TABLET PO PRN ×2 (08:22→16:56)
[2020-12-03] MEDS: GABAPENTIN 300 MG CAPSULE PO SCH ×4 (08:22→20:04)
[2020-12-03] MEDS: MULTIVITAMINS WITH MINERALS, THERAPEUTIC TABLET PO SCH (08:22)
[2020-12-03] MEDS: NICOTINE 21 MG/24 HOUR PATCH TD SCH (08:22)
[2020-12-03] MEDS: OMEGA-3/DHA/EPA/FISH OIL 1,000 MG CAPSULE PO SCH (08:22)
[2020-12-03] MEDS: FLUTICASONE/SALMETEROL 250-50 MCG/INH INHALER [60] IH SCH ×2 (08:22→20:04)
[2020-12-03] MEDS: ATORVASTATIN CALCIUM 10 MG TABLET PO SCH (08:22)
[2020-12-03] MEDS: ATOMOXETINE HCL 25 MG CAPSULE PO SCH (08:23)
[2020-12-03] MEDS: NALTREXONE HCL 50 MG TABLET PO SCH (08:23)
[2020-12-03 08:38] VITALS: BP 100/62
[2020-12-03] MEDS: OLANZapine 5 MG RAPDIS TABLET PO PRN (11:05)
[2020-12-03] MEDS: MAGNESIUM HYDROXIDE SUSPENSION 30 ML UDCUP PO PRN (11:18)
[2020-12-03 16:14] VITALS: BP 138/64
[2020-12-03] MEDS: DIVALPROEX SODIUM 500 MG ER TABLET PO SCH (20:04)
[2020-12-03] MEDS: OLANZapine 10 MG RAPDIS TABLET PO SCH (20:04)
[2020-12-03] MEDS: TraZODone HCL 100 MG TABLET PO SCH (20:04)
[2020-12-03] MEDS: MELATONIN 5 MG TABLET PO SCH (20:04)
[2020-12-03] MEDS: ZOLPIDEM TARTRATE 10 MG TABLET PO PRN (22:00)
[2020-12-04 00:13] VITALS: BP 124/66
[2020-12-04 04:30] VITALS: BP 128/73
[2020-12-04] MEDS: IBUPROFEN 600 MG TABLET PO PRN ×3 (04:33→16:46)
[2020-12-04 08:49] VITALS: BP 126/82
[2020-12-04] MEDS: OMEGA-3/DHA/EPA/FISH OIL 1,000 MG CAPSULE PO SCH (10:01)
[2020-12-04] MEDS: ATORVASTATIN CALCIUM 10 MG TABLET PO SCH (10:02)
[2020-12-04] MEDS: GABAPENTIN 300 MG CAPSULE PO SCH ×4 (10:02→20:26)
[2020-12-04] MEDS: NALTREXONE HCL 50 MG TABLET PO SCH (10:03)
[2020-12-04] MEDS: ATOMOXETINE HCL 25 MG CAPSULE PO SCH (10:03)
[2020-12-04] MEDS: MULTIVITAMINS WITH MINERALS, THERAPEUTIC TABLET PO SCH (10:03)
[2020-12-04] MEDS: NICOTINE 21 MG/24 HOUR PATCH TD SCH (10:03)
[2020-12-04] MEDS: FLUTICASONE/SALMETEROL 250-50 MCG/INH INHALER [60] IH SCH ×2 (10:23→20:26)
[2020-12-04] MEDS: OLANZapine 5 MG RAPDIS TABLET PO PRN ×2 (12:21→12:26)
[2020-12-04] MEDS: ACETAMINOPHEN 325 MG TABLET PO PRN (14:36)
[2020-12-04 16:28] VITALS: BP 127/70
[2020-12-04] MEDS: TraZODone HCL 100 MG TABLET PO SCH (20:26)
[2020-12-04] MEDS: OLANZapine 10 MG RAPDIS TABLET PO SCH (20:26)
[2020-12-04] MEDS: DIVALPROEX SODIUM 500 MG ER TABLET PO SCH (20:26)
[2020-12-04] MEDS: MELATONIN 5 MG TABLET PO SCH (20:26)
[2020-12-05 00:36] VITALS: BP 116/76
[2020-12-05] MEDS: IBUPROFEN 600 MG TABLET PO PRN ×3 (01:24→17:06)
[2020-12-05 08:38] VITALS: BP 100/60
[2020-12-05] MEDS: MULTIVITAMINS WITH MINERALS, THERAPEUTIC TABLET PO SCH (09:13)
[2020-12-05] MEDS: NICOTINE 21 MG/24 HOUR PATCH TD SCH (09:13)
[2020-12-05] MEDS: FLUTICASONE/SALMETEROL 250-50 MCG/INH INHALER [60] IH SCH ×2 (09:13→19:57)
[2020-12-05] MEDS: ATOMOXETINE HCL 25 MG CAPSULE PO SCH (09:14)
[2020-12-05] MEDS: ATORVASTATIN CALCIUM 10 MG TABLET PO SCH (09:14)
[2020-12-05] MEDS: GABAPENTIN 300 MG CAPSULE PO SCH ×4 (09:14→19:57)
[2020-12-05] MEDS: NALTREXONE HCL 50 MG TABLET PO SCH (09:14)
[2020-12-05] MEDS: OMEGA-3/DHA/EPA/FISH OIL 1,000 MG CAPSULE PO SCH (09:14)
[2020-12-05] MEDS: HALOPERIDOL 5 MG TABLET PO PRN (16:08)
[2020-12-05 16:25] VITALS: BP 106/63
[2020-12-05] MEDS: DIVALPROEX SODIUM 500 MG ER TABLET PO SCH (19:56)
[2020-12-05] MEDS: MELATONIN 5 MG TABLET PO SCH (19:56)
[2020-12-05] MEDS: TraZODone HCL 100 MG TABLET PO SCH (19:56)
[2020-12-05] MEDS: OLANZapine 10 MG RAPDIS TABLET PO SCH (19:57)
[2020-12-06 01:23] VITALS: BP 102/76
[2020-12-06] MEDS: ATOMOXETINE HCL 25 MG CAPSULE PO SCH (08:17)
[2020-12-06] MEDS: ATORVASTATIN CALCIUM 10 MG TABLET PO SCH (08:17)
[2020-12-06] MEDS: FLUTICASONE/SALMETEROL 250-50 MCG/INH INHALER [60] IH SCH ×2 (08:17→20:03)
[2020-12-06] MEDS: MULTIVITAMINS WITH MINERALS, THERAPEUTIC TABLET PO SCH (08:17)
[2020-12-06] MEDS: NALTREXONE HCL 50 MG TABLET PO SCH (08:18)
[2020-12-06] MEDS: OMEGA-3/DHA/EPA/FISH OIL 1,000 MG CAPSULE PO SCH (08:18)
[2020-12-06] MEDS: GABAPENTIN 300 MG CAPSULE PO SCH ×4 (08:18→20:04)
[2020-12-06] MEDS: HALOPERIDOL 5 MG TABLET PO PRN (08:28)
[2020-12-06] MEDS: NICOTINE 21 MG/24 HOUR PATCH TD SCH (08:28)
[2020-12-06 08:58] VITALS: BP 103/61
[2020-12-06] MEDS: IBUPROFEN 600 MG TABLET PO PRN ×2 (09:59→18:47)
[2020-12-06 16:10] VITALS: BP 127/82
[2020-12-06] MEDS: MAGNESIUM HYDROXIDE SUSPENSION 30 ML UDCUP PO PRN (18:47)
[2020-12-06 19:31] LABS: GLUCOMETER DEV NAME(LOC) POC.BV
[2020-12-06] MEDS: MELATONIN 5 MG TABLET PO SCH (20:03)
[2020-12-06] MEDS: DIVALPROEX SODIUM 500 MG ER TABLET PO SCH (20:03)
[2020-12-06] MEDS: TraZODone HCL 100 MG TABLET PO SCH (20:03)
[2020-12-06] MEDS: OLANZapine 10 MG RAPDIS TABLET PO SCH (20:03)
[2020-12-07 00:36] VITALS: BP 114/76
[2020-12-07 08:53] VITALS: BP 122/81
[2020-12-07] MEDS: MULTIVITAMINS WITH MINERALS, THERAPEUTIC TABLET PO SCH (08:53)
[2020-12-07] MEDS: NICOTINE 21 MG/24 HOUR PATCH TD SCH (08:53)
[2020-12-07] MEDS: NALTREXONE HCL 50 MG TABLET PO SCH (08:53)
[2020-12-07] MEDS: GABAPENTIN 300 MG CAPSULE PO SCH ×4 (08:55→20:13)
[2020-12-07] MEDS: ATORVASTATIN CALCIUM 10 MG TABLET PO SCH (08:55)
[2020-12-07] MEDS: OMEGA-3/DHA/EPA/FISH OIL 1,000 MG CAPSULE PO SCH (08:55)
[2020-12-07] MEDS: FLUTICASONE/SALMETEROL 250-50 MCG/INH INHALER [60] IH SCH ×2 (08:57→20:13)
[2020-12-07] MEDS ORDERED: ATOMOXETINE HCL 40 MG CAPSULE PO SCH (09:00)
[2020-12-07] MEDS: IBUPROFEN 600 MG TABLET PO PRN ×2 (09:34→19:31)
[2020-12-07] MEDS: HALOPERIDOL 5 MG TABLET PO PRN (14:16)
[2020-12-07] MEDS: ACETAMINOPHEN 325 MG TABLET PO PRN (14:17)
[2020-12-07] MEDS ORDERED: OLAN10TA26 PO (15:38)
[2020-12-07] MEDS ORDERED: GABA-1181 PO (15:38)
[2020-12-07] MEDS ORDERED: TRAZ-257 PO (15:38)
[2020-12-07] MEDS ORDERED: NALT50TA PO (15:38)
[2020-12-07] MEDS ORDERED: DIVA-80 PO (15:38)
[2020-12-07] MEDS ORDERED: MELA5TAB40 PO (15:38)
[2020-12-07] MEDS ORDERED: OMEG-135 PO (15:38)
[2020-12-07 16:13] VITALS: BP 104/72
[2020-12-07] MEDS: DIVALPROEX SODIUM 500 MG ER TABLET PO SCH (20:13)
[2020-12-07] MEDS: MELATONIN 5 MG TABLET PO SCH (20:13)
[2020-12-07] MEDS: TraZODone HCL 100 MG TABLET PO SCH (20:13)
[2020-12-07] MEDS: OLANZapine 10 MG RAPDIS TABLET PO SCH (20:14)
[2020-12-08] MEDS: NALTREXONE HCL 50 MG TABLET PO SCH (08:11)
[2020-12-08] MEDS: IBUPROFEN 600 MG TABLET PO PRN (08:11)
[2020-12-08] MEDS: GABAPENTIN 300 MG CAPSULE PO SCH (08:11)
[2020-12-08] MEDS: MULTIVITAMINS WITH MINERALS, THERAPEUTIC TABLET PO SCH (08:11)
[2020-12-08] MEDS: NICOTINE 21 MG/24 HOUR PATCH TD SCH (08:11)
[2020-12-08] MEDS: ATORVASTATIN CALCIUM 10 MG TABLET PO SCH (08:11)
[2020-12-08] MEDS: OMEGA-3/DHA/EPA/FISH OIL 1,000 MG CAPSULE PO SCH (08:11)
[2020-12-08] MEDS: FLUTICASONE/SALMETEROL 250-50 MCG/INH INHALER [60] IH SCH (08:12)
[2020-12-08 08:57] VITALS: BP 118/90
[2020-12-08] MEDS ORDERED: ATOR10TA84 PO (09:23)
== END 2020-12-08 09:45 | disposition home or self-care (01) | DRG 885 ==
LOC: B2X 09:45 → B3A 11-22 17:36
PROVIDERS: ADMIT Psychiatry & Neurology Psychiatry; ATTEND Psychiatry & Neurology Psychiatry
DX: F25.9 Schizoaffective disorder, unspecified (principal); R45.851 Suicidal ideations; E78.5 Hyperlipidemia, unspecified; F17.210 Nicotine dependence, cigarettes, uncomplicated; F90.9 Attention-deficit hyperactivity disorder, unspecified type; Z20.822 Contact with and (suspected) exposure to COVID-19; G47.00 Insomnia, unspecified; J44.9 Chronic obstructive pulmonary disease, unspecified; Z55.9 Problems related to education and literacy, unspecified; Z59.0 Homelessness; Z65.3 Problems related to other legal circumstances; Z91.19 Patient's noncompliance with other medical treatment and regimen; Z91.14 Patient's other noncompliance with medication regimen
CPT/HCPCS: 80053; 80061; 80164; 80307; 81003; 82962; 83036; 84439; 84443; 84702; 85025; 86592; 93005; J1200; J1630; J2060; J3535; Q9967